=== PATIENT | female | born 1955 | race Caucasian/White ===

== ENCOUNTER 2023-09-15 08:45 | Day surgery (SDC) | payer OTHER ==
[~2023-09-15] VITALS: Ht 154.9 cm; Wt 97.5 kg
[~2023-09-15 08:45] MED LIST: ceFAZolin SODIUM 2 GM in D5W 100 ML IV ONE
[2023-09-15] MEDS ORDERED: HYDROmorphone 2 MG/ML VIAL ONE (11:25)
[2023-09-15] MEDS ORDERED: MIDAZOLAM HCL 2 MG/2 ML VIAL (VERSED) ONE (11:26)
[2023-09-15] MEDS ORDERED: fentaNYL CITRATE/PF 100 MCG/2 ML AMP ONE (11:26)
[2023-09-15] MEDS ORDERED: KETAMINE HCL IN 0.9 % NACL 50 MG/5 ML SYRINGE ONE (11:26)
[2023-09-15] MEDS ORDERED: BUPIVACAINE LIPOSOME/PF 266 MG/20 ML VIAL INFIL ONE ×2 (11:37→13:29)
[2023-09-15] MEDS ORDERED: DEXAMETHASONE SOD PHOSPHATE 4 MG/ML VIAL ONE (11:45)
[2023-09-15] MEDS ORDERED: NS IRRIG SOLN 1000 ML IR ONE (11:45)
[2023-09-15] MEDS ORDERED: ePHEDrine sulfate 50 MG/ML VIAL ONE (11:45)
[2023-09-15] MEDS ORDERED: PROPOFOL 200MG/ 20ML VIAL (DIPRIVAN) IV ONE (11:45)
[2023-09-15] MEDS ORDERED: SEVOFLURANE 15 MIN GAS INH ONE (11:45)
[2023-09-15] MEDS ORDERED: LR 1,000 ML IV.SOLN IV ONE (11:45)
[2023-09-15] MEDS ORDERED: BUPIVACAINE /PF 0.25% 30 ML VIAL INJ ONE (11:45)
[2023-09-15] MEDS ORDERED: SUGAMMADEX SODIUM 200 MG/2 ML VIAL IV ONE (11:45)
[2023-09-15] MEDS ORDERED: ROCURONIUM BROMIDE 10 MG/ML (ZEMURON) ONE (11:45)
[2023-09-15] MEDS ORDERED: KETOROLAC TROMETHAMINE 30 MG VIAL ONE (11:45)
[2023-09-15] MEDS ORDERED: HYDROmorphone 1 MG/ML INJ. CARTRIDGE IVP PRN ×2 (15:15→16:30)
[2023-09-15] MEDS ORDERED: ONDANSETRON HCL 4 MG/2 ML VIAL IVP PRN ×2 (15:15→16:30)
[2023-09-15] MEDS ORDERED: METOCLOPRAMIDE HCL 10 MG/2 ML VIAL IVP PRN (15:15)
[2023-09-15] MEDS ORDERED: MEPERIDINE HCL/PF 25 MG/ML DISP.SYRIN IVP PRN (15:15)
[2023-09-15] MEDS ORDERED: GLUCOSE (DEXTROSE) ORAL GEL -Adults PO PRN (16:30)
[2023-09-15] MEDS ORDERED: ACETAMINOPHEN 325 MG TABLET PO PRN ×3 (16:30→16:45)
[2023-09-15] MEDS ORDERED: ALBUTEROL SULFATE 0.083% 2.5 MG/3 ML VIAL.NEB INH PRN (16:30)
[2023-09-15] MEDS ORDERED: HYDROcodone/ACETAMIN 5-325 MG TAB (NORCO/ VICODIN) PO PRN ×2 (16:30)
[2023-09-15] MEDS ORDERED: DEXTROSE 50% JECT 50 ML DISP.SYRIN IVP PRN (16:30)
[2023-09-15] MEDS ORDERED: D5W 1,000 ML IV PRN (16:30)
[2023-09-15 16:35] VITALS: PULSE 77; O2SAT 93
[2023-09-15] MEDS ORDERED: HYDROmorphone 1 MG/ML INJ. CARTRIDGE ONE (17:49)
[2023-09-15 19:00] VITALS: BP_SYST 124; PULSE 95; RESP 16
[2023-09-15] MEDS ORDERED: PREGABALIN 75 MG CAPSULE (LYRICA) PO SCH (21:00)
[2023-09-15] MEDS ORDERED: DOCUSATE SODIUM 250 MG CAPSULE PO SCH (21:00)
[2023-09-15] MEDS ORDERED: NORMAL SALINE 5 ML DISP.SYRIN IVF SCH ×2 (22:00)
[2023-09-16] MEDS ORDERED: metFORMIN HCL 500 MG TABLET PO SCH (08:00)
[2023-09-16] MEDS ORDERED: amLODIPine BESYLATE 5 MG TABLET PO SCH (09:00)
[2023-09-16] MEDS ORDERED: LOSARTAN POTASSIUM 50 MG TABLET (COZAAR) PO SCH (09:00)
== END 2023-09-15 19:50 | disposition home or self-care (01) ==
LOC: SDS 08:45 → SMU 08:48 → SDS 19:50
PROVIDERS: ATTEND Surgery
DX: K43.2 Incisional hernia without obstruction or gangrene (principal); K43.9 Ventral hernia without obstruction or gangrene; I10 Essential (primary) hypertension; K21.9 Gastro-esophageal reflux disease without esophagitis; J45.909 Unspecified asthma, uncomplicated; M79.7 Fibromyalgia; Z88.1 Allergy status to other antibiotic agents
CPT/HCPCS: 87081; 49615; 82962; 88300; 88302; C1781; J3490 ×2; J1100; J1885; J3465; J2704; J3010; J1170 ×2; J7060; J7120; C9290